=== PATIENT | male | born 1985 | race Caucasian/White ===

== ENCOUNTER 2020-04-17 20:54 | Emergency (ER) | payer BC ==
[~2020-04-17] VITALS: Ht 170.2 cm; Wt 100.0 kg
[2020-04-17] MEDS ORDERED: IV NORMAL SALINE 1000ML BAG 1,000 ML IV ONE ×2 (21:30→23:00)
[2020-04-17] MEDS ORDERED: IBUPROFEN 200 MG TABLET. PO ONE (21:30)
--- NOTE | 2020-04-17 21:31 | RAD ---
Exam: Chest one view INDICATION: Fever TECHNIQUE: Frontal view of the chest Comparisons: None FINDINGS: The cardiomediastinal silhouette and pulmonary vessels are within normal limits. The lung and pleural spaces are clear. IMPRESSION: No acute cardiopulmonary process. Electronically signed by: Hamilton oRmo MD (04/17/2020 9:28 PM) [id number]
--- NOTE | 2020-04-17 21:35 | PHYS DOC ---
Past Medical History COVID-19 Patient Risks: Age 65 or older: No Sign of co-morbidity: No Exp to person + for COVID: No Exp to PUI: No Travel from affected area: Yes Lower respiratory symptoms: Yes Fever: Yes Other: No (CANDE GERBER APRN) PPE Use: Full PPE with N95 mask or PAPR: Yes (CANDE GERBER APRN) General Adult EDM: Chief Complaint: FEVER HPI: HPI: Patient is a 34 year old male who presents with states he works for [employer]. He states that today he laid down to take a nap and when he awoke he was very feverish, had chest pain on the right side and a cough. He states he is slightly short of breath. He states he vapes occasionally but does not smoke. He states he has not been around anybody else is been sick that he knows of. He states he took Tylenol at 1930 before arriving. Patient is still febrile at 103.2. (CANDE GERBER APRN) Review of Systems: Review of Systems: Constitutional: fever or chills. [] Respiratory: cough or shortness of breath. [] Cardiovascular: chest pain or denies edema. [] (CANDE GERBER APRN) Heart Score: Risk Factors: Risk Factors: DM, Current or recent (<one month) smoker, HTN, HLP, family history of CAD, obesity. Risk Scores: Score 0 - 3: 2.5% MACE over next 6 weeks - Discharge Home Score 4 - 6: 20.3% MACE over next 6 weeks - Admit for Clinical Observation Score 7 - 10: 72.7% MACE over next 6 weeks - Early Invasive Strategies (CANDE GERBER APRN) Current Medications: Current Medications Medications (Trade) Dose Ordered Sig/Libra Start Time Stop Time Status Last Admin Dose Admin Ibuprofen (Motrin) 600 mg 1X ONCE 04/17/20 21:30 04/17/20 21:31 Sodium Chloride 1,000 ml @ 1,000 mls/hr 1X ONCE 04/17/20 21:30 04/17/20 22:29 04/17/20 21:29 1,000 MLS/HR (CANDE GERBER APRN) Allergies: Allergies: Allergies Coded Allergies Type Severity Reaction Last Updated Verified No Known Drug Allergies 04/17/20 No (CANDE GERBER APRN) Physical Exam: PE: Constitutional: Well developed, well nourished, no acute distress, non-toxic appearance. [] HENT: Normocephalic, atraumatic, bilateral external ears normal, oropharynx moist, no oral exudates, nose normal. [] Eyes: PERRLA, EOMI, conjunctiva normal, no discharge. [] Neck: Normal range of motion, no tenderness, supple, no stridor. [] Cardiovascular:Heart rate regular rhythm, no murmur [] Lungs & Thorax: Bilateral upper breath sounds clear and diminished lower bases to auscultation [] Abdomen: Bowel sounds normal, soft, no tenderness, no masses, no pulsatile masses. [] Skin: Warm, dry, no erythema, no rash. [] Back: No tenderness, no CVA tenderness. [] Extremities: No tenderness, no cyanosis, no clubbing, ROM intact, no edema. [] Neurologic: Alert and oriented X 3, normal motor function, normal sensory funct ion, no focal deficits noted. [] Psychologic: Affect normal, judgement normal, mood normal. [] (CANDE GERBER APRN) Current Patient Data: Vital Signs: Vital Signs Date Time Temp Pulse Resp B/P (MAP) Pulse Ox O2 Delivery O2 Flow Rate FiO2 04/17/20 21:03 103.3 116 29 153/82 (105) 100 Room Air 103.3 (CANDE GERBER APRN) EKG: EKG: [] (CANDE GERBER APRN) Radiology/Procedures: Radiology/Procedures: [] Impression: [facility] [address] [place] [address] IMAGING REPORT Signed PATIENT: PRECIOUS LOUIS ACCOUNT: [id number] : 1985 LOCATION: ER AGE: 34 SEX: M EXAM STATUS: REG ER ORD. PHYSICIAN: CANDE GERBER APRN REASON: fever PROCEDURE: PORTABLE CHEST 1V Exam: Chest one view INDICATION: Fever TECHNIQUE: Frontal view of the chest Comparisons: None FINDINGS: The cardiomediastinal silhouette and pulmonary vessels are within normal limits. The lung and pleural spaces are clear. IMPRESSION: No acute cardiopulmonary process. Electronically signed by: Hamilton Estevez MD (04/17/2020 9:28 PM) [id number] DICTATED and SIGNED BY: HAMILTON ESTEVEZ MD DATE: 04/17/202127 (CANDE GERBER APRN) Course & Med Decision Making: Course & Med Decision Making Pertinent Labs and Imaging studies reviewed. (See chart for details) COVID-19 CRITERIA: The patient was evaluated during the global COVID-19 pandemic, and that diagnosis was suspected/considered upon their initial presentation. Their evaluation, treatment and testing was consistent with current guidelines for patients who present with complaints or symptoms that may be related to COVID-19. Speaks in full clear sentences. Alert and oriented. Ambulatory with a steady gait. Patient has a dry cough. Lungs are clear in upper lobes but diminished in lower lobes. Patient denies abdominal pain, nausea, vomiting, diarrhea, sore throat, headache, dizziness. Since patient took tylenol before coming I will give Ibuprofen to get his fever down. Patient denies any past medical history. Skin flushed warm and dry. Patient fever has come down. His oxygen saturation continues to be 100%. Chest xray shows no acute findings. He is hemodynamically stable. Heart rate has come down to 90's. I will place the patient on Azithromycin and give him a inhaler if needed. [] (CANDE GERBER APRN) Dragon Disclaimer: Dragon Disclaimer: This electronic medical record was generated, in whole or in part, using a voice recognition dictation system. (CANDE GERBER APRN) Departure Departure Impression: Primary Impression: Cough Additional Impression: Fever Qualified Codes: R50.9 - Fever, unspecified Disposition: 01 HOME, SELF-CARE Condition: STABLE Referrals: NO PCP (PCP) Patient Instructions: Cough, Adult, Fever, Adult Additional Instructions: Take 1000mg Tylenol every 8 hours for your fever or pain. You will be called in 48 hours for your test results. Return to ED if you begin having severe shortness of air. Drink plenty of fluids to stay hydrated. Scripts Acetaminophen (ACETAMINOPHEN) 500 Mg Tablet 1-2 TAB PO PRN Q8HRS PRN for pain or fever, #30 TAB 0 Refills Prov: CANDE GERBER APRN 04/17/20 Benzonatate (TESSALON PERLE) 100 Mg Capsule 1 CAP PO TID, #30 CAP Prov: CANDE GERBER APRN 04/17/20 Albuterol Sulfate (PROAIR HFA INHALER) 8.5 Gm Hfa.aer.ad 1 PUFF INH PRN Q4HRS PRN for SHORTNESS OF BREATH, #1 INHALER 0 Refills Prov: CANDE GERBER APRN 04/17/20 Azithromycin (AZITHROMYCIN TABLET) 250 Mg Tablet 1 PKG PO UD for 5 Days, #6 TAB 0 Refills 2 the first day followed by 1 for days 2-5 Prov: CANDE GERBER APRN 04/17/20 Justicifation of Admission Dx: Justifications for Admission: Justification of Admission Dx: N/A (CANDE GERBER APRN) Attending Signature Attending Signature I have participated in the care of this patient and I have reviewed and agree with all pertinent clinical information above including history, exam, and recommendations. (CHALINO BRAMBILA DO) CANDE GERBER APRN Apr 17, 2020 21:35 CHALINO BRAMBILA DO Apr 17, 2020 23:08
[2020-04-17 21:43] LABS: BASO # 0.1 x10^3/uL (0.0-0.2); BASO % 1 % (0-3); EOS # 0.1 x10^3/uL (0.0-0.7); EOS % 1 % (0-3); HEMATOCRIT 42.2 % (39.0-53.0); HEMOGLOBIN 15.1 g/dL (13.0-17.5); LYMPH # 0.5 x10^3/uL (1.0-4.8); LYMPH % 8 % (24-48); MEAN CORPUSCULAR HEMOGLOBIN 31 pg (25-35); MEAN CORPUSCULAR HGB CONC 36 g/dL (31-37); MEAN CORPUSCULAR VOLUME 87 fL (79-100); MONO # 0.8 x10^3/uL (0.0-1.1); MONO % 13 % (0-9); NEUT # 4.8 x10^3/uL (1.8-7.7); NEUT % 78 % (31-73); PLATELET COUNT 253 x10^3/uL (140-400); RED BLOOD COUNT 4.84 x10^6/uL (4.30-5.70); RED CELL DISTRIBUTION WIDTH 13.1 % (11.5-14.5); WHITE BLOOD COUNT 6.2 x10^3/uL (4.0-11.0)
[2020-04-17 21:55] LABS: CALCIUM 8.6 mg/dL (8.5-10.1); CREATININE 1.2 mg/dL (0.7-1.3); GFR 68.5
[2020-04-17 22:01] LABS: ALBUMIN 3.9 g/dL (3.4-5.0); ALBUMIN/GLOBULIN RATIO 1.3 (1.0-1.7); TOTAL BILIRUBIN 0.5 mg/dL (0.2-1.0)
[2020-04-17 22:07] LABS: INFLUENZA A PATIENT NEGATIVE (NEGATIVE); INFLUENZA B PATIENT NEGATIVE (NEGATIVE)
[2020-04-17] MEDS ORDERED: ACET500T68 PO (22:13)
[2020-04-17] MEDS ORDERED: ALBU2.5V8 INH (22:13)
[2020-04-17] MEDS ORDERED: BENZ100C PO (22:13)
[2020-04-17] MEDS ORDERED: AZIT250T6 PO (22:13)
[2020-04-17 22:26] LABS: BILIRUBIN,URINE NEGATIVE (NEG); COLOR,URINE YELLOW; NITRITE,URINE NEGATIVE (NEG); PROTEIN,URINE NEGATIVE (NEG-TRACE)
[2020-04-17 22:30] LABS: BACTERIA,URINE 0 /HPF (0-FEW); CLARITY,URINE HAZY; RBC,URINE 0 /HPF (0-2); WBC,URINE OCC /HPF (0-4)
[2020-04-17 23:30] VITALS: BP 119/74
== END 2020-04-17 23:45 | disposition home or self-care (01) ==
LOC: ER 20:54
DX: R05 Cough (principal); R50.9 Fever, unspecified; R06.02 Shortness of breath; R07.89 Other chest pain
CPT/HCPCS: 71045; 80053; 81001; 83605; 85025; 87086; 87804; 99285; J7030; U0003; 36415

== ENCOUNTER 2020-06-25 09:38 | Emergency (ER) | payer BC ==
[~2020-06-25] VITALS: Ht 172.7 cm; Wt 100.0 kg
[~2020-06-25 09:38] MED LIST: ACET500T68 PO; ALBU2.5V8 INH; AZIT250T6 PO; BENZ100C PO
[2020-06-25 10:44] LABS: BASO # 0.1 x10^3/uL (0.0-0.2); BASO % 1 % (0-3); EOS % 0 % (0-3); HEMOGLOBIN 14.4 g/dL (13.0-17.5); LYMPH % 11 % (24-48); MEAN CORPUSCULAR HEMOGLOBIN 31 pg (25-35); MEAN CORPUSCULAR HGB CONC 35 g/dL (31-37); MEAN CORPUSCULAR VOLUME 87 fL (79-100); MONO # 0.7 x10^3/uL (0.0-1.1); MONO % 8 % (0-9); NEUT # 7.8 x10^3/uL (1.8-7.7); NEUT % 80 % (31-73); PLATELET COUNT 257 x10^3/uL (140-400); RED BLOOD COUNT 4.73 x10^6/uL (4.30-5.70); RED CELL DISTRIBUTION WIDTH 12.8 % (11.5-14.5); WHITE BLOOD COUNT 9.7 x10^3/uL (4.0-11.0)
[2020-06-25 10:52] LABS: CALCIUM 8.3 mg/dL (8.5-10.1); CREATININE 1.1 mg/dL (0.7-1.3); GFR 75.7; POTASSIUM 4.2 mmol/L (3.5-5.1)
[2020-06-25 10:59] LABS: ALBUMIN 3.7 g/dL (3.4-5.0); ALBUMIN/GLOBULIN RATIO 1.1 (1.0-1.7); C-REACTIVE PROTEIN 7.8 mg/L (0-3.3); TOTAL BILIRUBIN 0.6 mg/dL (0.2-1.0)
--- NOTE | 2020-06-25 11:08 | RAD ---
Examination: CHEST AP ONLY History: Reason: cough, covid? / Spl. Instructions: / History: Comparison: 04/17/2020. Findings: AP portable upright frontal view of the chest was obtained. The cardiomediastinal silhouette is normal. Lungs are clear. There is no pneumothorax. No pleural effusion is appreciated. No acute bone abnormality. IMPRESSION: No acute cardiopulmonary process. Electronically signed by: Chacho Pearson MD (06/25/2020 11:04 AM) [id number]
[2020-06-25] MEDS ORDERED: IBUPROFEN 400 MG TABLET. PO ONE (11:30)
[2020-06-25] MEDS ORDERED: ONDA4TAB7 PO (12:02)
--- NOTE | 2020-06-25 12:02 | PHYS DOC ---
Past Medical History Past Medical History: Other Additional Past Medical Histor: ADHD, SEASONAL ALLERGIES Past Surgical History: Other Additional Past Surgical Histo: RIGHT HAND SX Smoking Status: Former Smoker Alcohol Use: Rarely General Adult EDM: Chief Complaint: FEVER HPI: HPI: Patient is 34-year-old previously healthy male who presents to the emergency room complaining of nausea, diarrhea, fever, body aches, cough. He states that this all started around 3 AM this morning. He believes that he has been exposed to coronavirus. He denies any chest pain or shortness of breath at this time. He states cough is nonproductive and mild. He has not had any vomiting or d iarrhea. He states his whole body aches. His highest fever was 103. He took Tylenol for this prior to arrival. Review of Systems: Review of Systems: General: Reports fever, chills, sweats, fatigue Eyes: Denies drainage, blurred vision, eye redness HENT: Denies rhinorrhea, sore throat, earache Respiratory: Denies cough, shortness of breath, wheezing Cardiac: Denies edema, palpitations, chest pain GI: Denies abdominal pain, vomiting reports nausea MSK: Denies back pain, neck pain reports diffuse pain Skin: Denies rash, jaundice Neuro: Denies headache, dizziness Psychiatric: Denies SI/HI Heart Score: Risk Factors: Risk Factors: DM, Current or recent (<one month) smoker, HTN, HLP, family history of CAD, obesity. Risk Scores: Score 0 - 3: 2.5% MACE over next 6 weeks - Discharge Home Score 4 - 6: 20.3% MACE over next 6 weeks - Admit for Clinical Observation Score 7 - 10: 72.7% MACE over next 6 weeks - Early Invasive Strategies Current Medications: Current Medications Medications (Trade) Dose Ordered Sig/Libra Start Time Stop Time Status Last Admin Dose Admin Ibuprofen (Motrin) 800 mg 1X ONCE 06/25/20 11:30 06/25/20 11:31 DC 06/25/20 11:28 800 MG Allergies: Allergies: Allergies Coded Allergies Type Severity Reaction Last Updated Verified No Known Drug Allergies 04/17/20 No Physical Exam: PE: General: Awake, alert, NAD. Well Nourished, well hydrated. Cooperative HEENT: Atraumatic, EOMI, PERRL, airway patent, moist oral mucosa Neck: Supple, trachea midline Respiratory: CTA bilaterally, normal effort, no wheezing/crackles CV: RRR, no murmur, cap refill <2 GI: Soft, nondistended, nontender, no masses MSK: No obvious deformities Skin: Warm, dry, intact Neuro: A&O x3, speech NL, sensory and motor grossly intact, no focal deficits Psych: Normal affect, normal mood, not suicidal or homicidal Current Patient Data: Labs: Laboratory Tests Test 06/25/20 10:30 White Blood Count 9.7 x10^3/uL (4.0-11.0) Red Blood Count 4.73 x10^6/uL (4.30-5.70) Hemoglobin 14.4 g/dL (13.0-17.5) Hematocrit 41.0 % (39.0-53.0) Mean Corpuscular Volume 87 fL (79-100) Mean Corpuscular Hemoglobin 31 pg (25-35) Mean Corpuscular Hemoglobin Concent 35 g/dL (31-37) Red Cell Distribution Width 12.8 % (11.5-14.5) Platelet Count 257 x10^3/uL (140-400) Neutrophils (%) (Auto) 80 % (31-73) H Lymphocytes (%) (Auto) 11 % (24-48) L Monocytes (%) (Auto) 8 % (0-9) Eosinophils (%) (Auto) 0 % (0-3) Basophils (%) (Auto) 1 % (0-3) Neutrophils # (Auto) 7.8 x10^3/uL (1.8-7.7) H Lymphocytes # (Auto) 1.0 x10^3/uL (1.0-4.8) Monocytes # (Auto) 0.7 x10^3/uL (0.0-1.1) Eosinophils # (Auto) 0.0 x10^3/uL (0.0-0.7) Basophils # (Auto) 0.1 x10^3/uL (0.0-0.2) D-Dimer (Kristy) 0.95 ug/mlFEU (0.00-0.50) H Sodium Level 138 mmol/L (136-145) Potassium Level 4.2 mmol/L (3.5-5.1) Chloride Level 103 mmol/L (98-107) Carbon Dioxide Level 27 mmol/L (21-32) Anion Gap 8 (6-14) Blood Urea Nitrogen 12 mg/dL (8-26) Creatinine 1.1 mg/dL (0.7-1.3) Estimated GFR (Cockcroft-Gault) 75.7 BUN/Creatinine Ratio 11 (6-20) Glucose Level 88 mg/dL (70-99) Calcium Level 8.3 mg/dL (8.5-10.1) L Total Bilirubin 0.6 mg/dL (0.2-1.0) Aspartate Amino Transferase (AST) 17 U/L (15-37) Alanine Aminotransferase (ALT) 32 U/L (16-63) Alkaline Phosphatase 64 U/L (46-116) Lactate Dehydrogenase 190 U/L (85-227) Creatine Kinase 104 U/L (39-308) Troponin I Quantitative < 0.017 ng/mL (0.000-0.055) C-Reactive Protein, Quantitative 7.8 mg/L (0-3.3) H AL-Rga-H-Type Natriuretic Peptide 54 pg/mL (0-124) Total Protein 7.0 g/dL (6.4-8.2) Albumin 3.7 g/dL (3.4-5.0) Albumin/Globulin Ratio 1.1 (1.0-1.7) Laboratory Tests 06/25/20 10:30 Laboratory Tests 06/25/20 10:30 Vital Signs: Vital Signs Date Time Temp Pulse Resp B/P (MAP) Pulse Ox O2 Delivery O2 Flow Rate FiO2 06/25/20 10:08 100.5 92 20 110/59 (76) 99 Room Air 100.5 EKG: EKG: [] Radiology/Procedures: Radiology/Procedures: [] Course & Med Decision Making: Course & Med Decision Making Pertinent Labs and Imaging studies reviewed. (See chart for details) Patient is a 34-year-old male who presents to the emergency room with cough, nausea, body aches, fever. At this time there is concern for the novel coronavirus 19. Risk stratifying work-up was ordered including chest x-ray, d- dimer, CPK, CRP, LDH, troponin, ferritin, CBC, CMP. Due to concern of COVID-19 I have discussed the importance of quarantining with the patient. I have discussed with them that they should avoid grocery stores, gas stations, phar macies, work, friends/family's homes. I discussed with him that it is important that they do not expose themselves to anyone else for the next 14 days. Chest x-ray does not show infiltrates at this time and patient will not be treated with empiric antibiotics. I have discussed with the patient the course of the illness and we have discussed strict return precautions. At this time patient does not need admission as they are stable, however it is possible that they may get worse over the next few days and we have discussed the importance of coming back if they develop severe shortness of breath or any other symptoms that they are concerned about. Patient's test results and vitals while in the ED were fully reviewed and discussed with the patient. Patient is stable and at this time does not need admission to the hospital. We have discussed strict return precautions and the importance of following up with their Primary Care Physician. Patient stated understanding and was given an opportunity to ask any questions. Dragon Disclaimer: Armetheon Disclaimer: This electronic medical record was generated, in whole or in part, using a voice recognition dictation system. Departure Departure Impression: Primary Impression: Suspected 2019 novel coronavirus infection Disposition: HOME, SELF-CARE Condition: STABLE Referrals: PADMAJA VALENTINE MD (PCP) Patient Instructions: Fever Additional Instructions: Thank you for visiting [facility]. We appreciate you trusting us with your care. If any additional problems come up please don't hesitate to return to visit us. Follow up with your primary care provider so they can plan additional care if needed and know about the problem that you had today. If symptoms worsen come back to the Emergency Department. Any concerning symptoms that start such as chest pain, shortness of air, weakness or numbness on one si de of the body, running high fevers or any other concerning symptoms return to the ER. You have a viral syndrome which may include symptoms like muscle aches, fevers, chills, runny nose, cough, sneezing, sore throat, nausea, vomiting, or diarrhea. One of the potential viruses that you may have is SARS-CoV-2, the virus that causes COVID-19, also known as the Coronavirus. You are just as likely to have a different viral infection such as the common cold, flu, etc. Most patients with the Coronavirus have mild symptoms and recover on their own. Resting, staying hydrated, and sleep based on known cases can be helpful. As of todays visit, you are well enough to go home and treat your symptoms with oral fluids and over the counter medications. Coronavirus testing is not performed on most people with mild symptoms who are being discharged from the emergency department. If Coronavirus testing was performed today the results will not be available for possibly up to 3-4 days. If your result is positive you will be contacted. Please follow the following precautions at home: 1. Stay home except to get medical care. 2. As advised by the CDC, we recommend that you stay in your home and minimize contact with other people. We do not want you to spread the infection. 3. Those who are older or have significant medical issues may have more severe symptoms from this infection. We recommend self-isolation FOR AT LEAST 10 DAYS after your 1st day of symptoms. AFTER you feel better please wait AT LEAST ANOTHER WEEK before returning to regular activities and being around other people. 4. IF you become sicker and have difficulty breathing, chest pain, are unable to eat/drink, severe vomiting, diarrhea, or weakness you may need to return to the Emergency Department. 5. You should restrict activities outside of your home, except for getting medical care. DO NOT go to work, school, or public areas. Avoid using public transportation, ride sharing, or taxis. 6. Separate yourself from other people in your home. You should use a separate bathroom if possible. 7. Avoid sharing personal household items such as dishes, cups, eating utensils, towels, etc. 8. Clean all high touch surfaces every day (door knobs, counter tops, etc). Use a household cleaning spray or wipe per label instructions. 9. Clean your hands often. Wash your hands with soap and water for at least 20 seconds. 10. Cover your mouth and nose when you cough or sneeze. 11. Throw used tissues in the trash and immediately wash your hands. 12. You can take Tylenol 1,000 mg every 6 hours and Ibuprofen 800 mg every 6 hours as needed for body aches and fever For additional resources please visit the CDC website or the [facility] ([phone]), you may also call 211 for further information. Scripts Ondansetron Hcl (ZOFRAN) 4 Mg Tablet 1 TAB PO PRN Q6-8HRS for nausea, #12 TAB Prov: ALCIRA LAL MD 06/25/20 Justicifation of Admission Dx: Justifications for Admission: Justification of Admission Dx: N/A ALCIRA LAL MD Jun 25, 2020 12:02
[2020-06-25 12:30] VITALS: BP 101/51
--- NOTE | 2020-06-25 14:24 | EKG ---
[facility] [address] [place] [address] Test Date: 2020-06-25 Test Time: 10:22:18 Pat Name: PRECIOUS LOUIS Department: Room: Gender: M Food Services Director: : 1985 Requested By: ALCRIA LAL Order Number: [id number] Reading MD: Measurements Intervals Russell Rate: 80 P: -24 WV: 160 QRS: 59 QRSD: 94 T: 19 QT: 336 QTc: 391 Interpretive Statements SINUS RHYTHM NO SPECIFIC ECG ABNORMALITIES RI6.01 No previous ECG available for comparison
--- NOTE | 2020-06-27 10:23 | NUR ---
IP: Attempted to call negative COVID results to pt. No answer. Left voice mail to return my call.
== END 2020-06-25 12:56 | disposition home or self-care (01) ==
LOC: ER 09:38
DX: R50.9 Fever, unspecified (principal); Z20.828 Contact with and (suspected) exposure to other viral communicable diseases; R19.7 Diarrhea, unspecified; R05 Cough; R06.02 Shortness of breath; F90.9 Attention-deficit hyperactivity disorder, unspecified type; Z87.891 Personal history of nicotine dependence; Z98.890 Other specified postprocedural states
CPT/HCPCS: 36415; 71045; 80053; 82550; 83615; 83880; 84484; 85025; 85379; 86140; 93005; 99285; U0003